=== PATIENT | female | born 1990 | race Caucasian/White ===

== ENCOUNTER → 2016-08-04 | Outpatient (CLI) | payer BC | LOC: BHSO 10:13 | DX: F41.1 Generalized anxiety disorder (principal) ==

== ENCOUNTER → 2016-09-29 | Outpatient (CLI) | payer BC | LOC: BHSO 10:46 | DX: F33.41 Major depressive disorder, recurrent, in partial remission (principal) ==

== ENCOUNTER → 2016-12-08 | Outpatient (CLI) | payer BC | LOC: BHSO 12:46 | DX: F41.1 Generalized anxiety disorder (principal) ==

== ENCOUNTER 2022-02-26 02:05 | Observation (INO) | payer BC ==
[~2022-02-26] VITALS: Ht 162.6 cm; Wt 78.0 kg
[2022-02-26] VITALS (16 sets, daily range): BP systolic 106–138; BP diastolic 49–98; PULSE 90–134; TEMP 97.8–98.5
[2022-02-26 02:34] LABS: COLLECTION METHOD CLEAN CATCH
[2022-02-26 02:37] LABS: BASO # 0.1 K/mm3 (0.0-0.2); BASO % 0.6 % (0.0-2.0); EOS # 0.4 K/mm3 (0.0-0.7); EOS % 4.9 % (0.0-4.0); GRAN % 51.6 % (42.2-75.2); HEMATOCRIT 42.5 % (37.0-47.0); HEMOGLOBIN 14.7 g/dl (12.5-16.0); LYMPH # 2.4 K/mm3 (1.2-3.4); LYMPH % 30.7 % (20.0-51.0); MEAN CELL VOLUME 88 fl (80.0-100.0); MEAN CORPUSCULAR HEMOGLOBIN 30 pg (27-31); MEAN CORPUSCULAR HGB CONC 35 g/dl (33.0-37.0); MEAN PLATELET VOLUME 11.2 fl (7.4-10.4); MONO # 0.9 K/mm3 (0.1-0.6); MONO % 11.9 % (1.7-9.3); PLATELET COUNT 203 K/mm3 (130-400); RED BLOOD COUNT 4.83 M/mm3 (4.10-5.30); REDCELL DISTRIBUTION WIDTH-CV 12.5 % (11.5-14.5)
[2022-02-26 02:41] LABS: SQUAMOUS EPITHELIAL 0-2 /hpf (0-10); URINE BACTERIA None Seen /hpf (NONE SEEN)
[2022-02-26 02:42] LABS: PH 5.5 (5.0-8.5); URINE APPEARANCE Clear (CLEAR/HAZY); URINE BLOOD TRACE-INTACT (NEGATIVE); URINE COLOR Yellow (YELLOW); URINE GLUCOSE Negative (NEGATIVE); URINE KETONE Negative (NEGATIVE); URINE NITRATE Negative (NEGATIVE); URINE PROTEIN(semi-quant) Negative (NEGATIVE); URINE UROBILINOGEN 0.2 E.U/dL (0.2-1.0)
[2022-02-26 02:59] LABS: ALBUMIN 3.8 gm/dL (3.5-5.0); BILIRUBIN,TOTAL 0.3 mg/dL (0.2-1.2); C-REACTIVE PROTEIN 0.41 mg/dL (0.00-0.50); CALCIUM 9.7 mg/dL (8.4-10.2); CREATININE, serum 0.92 mg/dL (0.57-1.11); POTASSIUM 3.9 mmol/L (3.5-4.5); TOTAL PROTEIN 7.4 gm/dL (6.2-8.1)
[2022-02-26] MEDS ORDERED: EFFEXOR XR75 MG/CAP PO (05:10)
--- NOTE | 2022-02-26 05:14 | NUR ---
PT ARRIVES VIA W/C TO ROOM 347
[2022-02-26] MEDS ORDERED: ZYRTEC 10MG10 MG PO (05:40)
--- NOTE | 2022-02-26 05:45 | NUR ---
PT HAS IV INFUSING WITH MECHANICAL SERVICE SPECIALIST DILAUDID INFUSING. IS MORE COMFORTABLE. HAS REPORTED LEFT ABD PAIN RADIATING TO LEFT BACK. IV SITE TO LAC. SPOUSE AT BEDSIDE. ADMISSION QUESTIONS COMPLETE. IS NPO.
--- NOTE | 2022-02-26 08:00 | NUR ---
PATIENT IS A&O. NOTED ELEVATED HR IN LOW TO MID 100'S. ALL OTHER VSS. PATIENT HAVING A LOT OF PAIN DUE TO 10MM KIDNEY STONE. DILAUDID CUSTOMER CONSULTING MANAGER. PRN IV MORPHINE GIVEN FOR NAUSEA. NPO. HEAD TO TOE ASSESSMENT COMPLETE. NO OTHER NEEDS AT THIS TIME. CALL LIGHT IN REACH. PATIENT TIRED, LIGHTS TURNED DOWN.
--- NOTE | 2022-02-26 09:10 | NUR ---
PATIENT GETTING INTO SHOWER PRE-OP. IV SITE COVERED. PATIENT WILL LIKELY GO TO SURGERY LATER TODAY.
--- NOTE | 2022-02-26 09:30 | NUR ---
AT BEDSIDE. SEE ORDERS.
--- NOTE | 2022-02-26 14:19 | NUR ---
SW met with pt to complete intake. Pt lives at home with , children, Christiano @[phone]. Pt is [facility] and does not use any DME. Pt gets her medications from [facility] in . No [facility] agent appointed and not interested at this time. SW to await and follow up as needed. DC: Home
--- NOTE | 2022-02-26 15:55 | NUR ---
PATIENT GOING DOWN TO SURGERY VIA BED. AT BEDSIDE. CONSENT ON CHART. IV FLUIDS TO GRAVITY. PATIENT OFF FLOOR.
--- NOTE | 2022-02-26 18:25 | NUR ---
PATIENT BACK IN ROOM POST OP. ORIENTED BUT A LITTLE DROWSY AND ENJOYING ICE CHIPS. PATIENT RECEIVED PAIN MEDS IN PACU FOR PAIN. ONLY C/O DISCOMFORT IS AT THE URETHERA AND IS ASKING FOR AN ICE PACK, PCT GETTING FOR HER. NOTED ELEVATED HR OF 121. PATIENT HAS BEEN TACHY HER ENTIRE HOSPITAL STAY. 02 @ 2L PER NC TO KEEP SATS IN MID 90'S. ALL OTHER VSS. NO C/O N/V. PATIENT ASKING ABOUT EATING, SEE ORDERS. HEAD TO TOE ASSESSMENT COMPLETE. AT BEDSIDE. CALL LIGHT IN REACH.
[2022-02-27 04:29] VITALS: BP 116/38; PULSE 94; TEMP 98.4
[2022-02-27 08:00] VITALS: BP 119/88; PULSE 109; TEMP 99.2
--- NOTE | 2022-02-27 08:00 | NUR ---
PATIENT IS A&O. VSS. REPORTS PAIN IS SO MUCH BETTER. ONLY C/O DISCOMFORT NOW IS BURING WITH URINATION. PATIENT GIVEN POST-OP STENT EDUCATION. PATIENT EAT/DRINK/VOIDING SUFFICENT AMOUNTS. NO C/O N/V. IV FLUIDS INFUSING VIA PUMP. PATIENT HOPING TO DISCHARGE HOME LATER TODAY. HEAD TO TOE ASSESSMENT COMPLETE. INDEPENDENT IN ROOM. CALL LIGHT IN REACH.
[2022-02-27] MEDS ORDERED: FLOMAX 0.40.4 MG/CAP PO (10:14)
[2022-02-27] MEDS ORDERED: ROXICODONE 55 MG/TAB PO (10:15)
--- NOTE | 2022-02-27 11:45 | NUR ---
PATIENT DISCHARGING HOME VIA AMBULATORY TO [facility] WITH . GAVE DISCHARGE INSTRUCTIONS, E-SCRIPTS SENT, AND FOLLOW UP APT DISCUSSED. PATIENT GIVEN POST-OP STENT EDUCATION. ANSWERED QUESTIONS/CONCERNS. RN DC'D RIGHT WRIST IV AND COVERED SITE WITH GAUZE [employer] COBAN. PATIENT GIVEN PAIN MED FOR COMFORT BEFORE DISCHARGE PER HER REQUEST. PATIENT IS DRESSED, PACKED AND DISCHARGED.
== END 2022-02-27 11:45 | disposition home health service (06) ==
LOC: COL.ER 02:05 → SURG 04:37
PROVIDERS: Family Medicine; ADMIT Urology
DX: N13.2 Hydronephrosis with renal and ureteral calculous obstruction (principal)
CPT/HCPCS: C1769; C2617; G0378; J0690; J0696; J1100; J1170; J1885; J2250; J2270; J2405; J2550; J2704; J3010; J7030; J7120; Q9967